=== PATIENT | female | born 1950 | race Caucasian/White ===

== ENCOUNTER → 2016-07-01 | Outpatient (CLI) | payer OTHER ==
--- NOTE | 2016-07-01 17:10 | DX ---
DEXA Bone Mineral Densitometry Clinical Indications: Postmenopausal, history of wrist surgery, screening for osteoporosis Comparison: May 02, 2014 (low bone density) Technique: Bone Mineral Densitometry (BMD) by [employer] X-Ray Absorptiometry (DEXA) was performed utilizing the [employer] scanner. The lumbar spine was evaluated in the AP projection. The bilat eral hips and forearm were evaluated in the AP projection. Vertebral fracture assessment was also pe rformed. AP Lumbar Spine: The L1, L2, L3 and L4 vertebral bodies were evaluated. BMD: 1.238 gm/cm2 T-score: 0.4 SD Z-score: 2.1 SD No significant change AP Left Hip: Neck BMD: 0.867 gm/cm2 T-score: -1.2 SD Z-score: 0.4 SD No significant change in total BMD AP Right Hip: Neck BMD: 0.818 gm/cm2 T-score: -1.6 SD Z-score: 0 SD No significant change in total BMD AP Left Forearm, 05/28: BMD: 0.873 gm/cm2 T-score: 0 SD Z-score: 1.2 SD No significant change Vertebral Fracture Assessment: No significant fracture deformity. No prevertebral aortic calcificati on, significant marginal bone spurring, facet arthrosis, or intrinsic vertebral body sclerosis that would effect the accuracy of the lumbar spine BMD measurement. Conclusion: Considering the lowest measured site, the patient has low bone density. The ten year FRAX risk for any major osteoporotic fracture is 15% and for a hip fracture is 1.7%. Any bone loss in this patient is probably related to aging or estrogen deficiency. To prevent osteoporosis and to promote the patient's bone density, the following recommendations shou ld be considered: 1. Pursue a regular regimen of weightbearing and muscle strengthening exercises in order to reduce t he risk of falls and fractures (as tolerated by the patient's general medical condition). 2. Ensure that daily dietary calcium uptake is maximized. 3. Consider checking the serum vitamin D level. Ensure that intake of vitamin D is 600 IU per day (fo r all ages through 70) . 4. Consider follow-up DEXA scan in two years to assess the rate of bone loss in this patient.
== END ==
LOC: FIMAGING 13:22
PROVIDERS: ATTEND Obstetrics & Gynecology
DX: Z13.820 Encounter for screening for osteoporosis (principal); M85.80 Other specified disorders of bone density and structure, unspecified site

== ENCOUNTER → 2017-03-27 | Outpatient (CLI) | payer OTHER | LOC: FIMAGING 09:15 | PROVIDERS: ATTEND Obstetrics & Gynecology | DX: Z12.31 Encounter for screening mammogram for malignant neoplasm of breast (principal) | CPT/HCPCS: G0202 ==

== ENCOUNTER 2017-07-06 20:59 | Observation (INO) | payer OTHER ==
[2017-07-06] MEDS ORDERED: NS 1,000 ML IV ONE (21:31)
--- NOTE | 2017-07-06 21:32 | EDPHY ---
H & P Smoking Status: Never smoked Time Seen by Provider: 07/06/17 21:22 HPI/ROS: HPI Fall on stairs. 66-year-old female by private vehicle with her . The patient reported she had a couple of glasses of wine after dinner. She reports that she had a headache. She reports she was walking up her stairs carrying a computer and either tripped on the power cord of the computer she was caring or fainted. She fell forward and likely struck the right side of her face on the edge of the stairs. Her who was in another room heard a loud crash when she fell. He then found her on the stairs. He thinks she lost consciousness for five minutes possibly up to 10 minutes before regaining consciousness. Currently, she complains of a headache which she describes as frontal in nature and right-sided facial pain and swelling. She also complains of a laceration to her right medial elbow and some bruising to her right hand. No neck pain. Denies other extremity pain. No loss of sensation or weakness in her extremities. She is not on Coumadin. She takes aspirin daily. No other antiplatelet or anticoagulant agents. ROS: Constitutional: No fever, no chills. No weakness. Eyes: No discharge. No changes in vision. ENT: No sore throat. No nasal congestion or rhinorrhea. Respiratory: No cough. No shortness of breath. Cardiac: No chest pain, no palpitations. Gastrointestinal: No abdominal pain, no vomiting, no diarrhea. Genitourinary: No hematuria. No dysuria or increased frequency with urination. Musculoskeletal: No back pain. No neck pain. No extremity pain. Complains of right-sided facial pain. Skin: No rashes. Neurological: Right frontal headache. No focal weakness or altered sensation. Past medical history: Hypothyroidism, hyperlipidemia, prediabetic, chronic kidney disease, hypertension, 3 knee surgeries, hand surgery, x2. Social history: Nonsmoker. Admits to two or three glasses of wine tonight. Here with her . Physical Exam: General Appearance: Alert, no distress. This patient is responding to questions appropriately and in full sentences. This patient appears well- hydrated and well-nourished. Head: Normocephalic atraumatic except for a large periorbital hematoma and maxilla hematoma on the right side which has her right eye swollen shut. I was able to retract her eyelids. Grossly her right pupil and cornea appear normal. Face: Facial bones are stable on palpation. Eyes: Pupils equal and round and reactive to light, no pallor or injection. No lid erythema or edema. ENT, Mouth: Mucous membranes moist. Dentition is intact. No malocclusion of the jaw. No tongue lacerations or abrasions. Pharynx is clear. The bilateral nasal canals are clear. No septal hematoma. She does have a midline upper lip laceration involving the midline upper lip mucosa which measures approximately 1.5 cm. She has a 0.5 cm laceration midline upper lip but not involving the vermilion border. Respiratory: There are no retractions, lungs are clear to auscultation with good air movement bilaterally. Chest wall is stable to AP and lateral palpation. Cardiovascular: Regular rate and rhythm. No murmur. Gastrointestinal: Abdomen is soft and nontender, no masses, bowel sounds normal. Neurological: Motor sensory function is intact. Cranial nerves are normal. Cerebellar function intact. Skin: Warm and dry, no rashes. 3 cm elliptical laceration distal right arm medial aspect just proximal to the medial condyle. Contusion dorsal aspect right hand fourth and fifth metacarpal's. Musculoskeletal: Neck is supple and nontender. The trachea is midline. No midline cervical, thoracic, lumbar or sacral tenderness on palpation. No flank tenderness on palpation. Extremities are symmetrical, full range of motion. All joints in the bilateral upper and bilateral lower extremities range without pain or impingement. No tenderness on palpation of the long bones in the bilateral upper and bilateral lower extremities. Psychiatric: No agitation. No depression. Database: EKG: Imaging: Right hand x-ray series: Negative for fracture, subluxation, dislocation. Interpreted by me. Right elbow x-ray series: Negative for fracture, subluxation, dislocation, radiopaque foreign body. Interpreted by me. Chest x-ray AP portable: No bony abnormality noted. No pneumothorax. No acute cardiopulmonary disease process. Interpreted by me. CT scan of head without contrast: Significant for a left-sided frontal and parietal subarachnoid hemorrhage. No shift. There is no evidence of skull fracture or facial fracture. Extensive soft tissue swelling involving the right periorbital and maxilla soft tissues. Results were discussed with staff radiologist Dr. Telly Chacko. CT scan of cervical line without contrast: Negative for fracture, subluxation, dislocation. Results were discussed with staff radiologist Dr. Telly Chacko. Procedures: Please see procedure note by physician lead assistant manager Ju Garza for facial laceration repair and right elbow laceration repair. Emergency department course: IV placed. Vital signs reviewed. She is moderately hypertensive. Vital signs otherwise normal. After my initial trauma assessment she was sent for CT imaging of the head. Upon return and recognition of a serum alcohol of 343 she was placed in a cervical collar. A CT scan of her cervical spine was ordered. She will remain in her cervical collar until further evaluation by the trauma service. 11:00 p.m., spoke with on-call he neurosurgeon Dr. Lenny Broderick. Case discussed in detail with him. He are one of his partners will see this patient on consultation. We will plan on admitting the patient primarily to the trauma service. 11:15 p.m., spoke with on-call trauma surgeon Dr. Yunier Bee. Case discussed in detail with him. He Accepts this patient for admission and will see the patient in the emergency department shortly. I relayed my conversation with Dr. Broderick to Dr. Bee. The patient will be given 1 g of IV Keppra in the emergency department for seizure prophylaxis. She will also be given 60 mg of nimodipine orally secondary to the possibility of nontraumatic subarachnoid hemorrhage and vasospasm. 11:35 p.m., Dr. Bee is at the bedside. The patient's remaining emergency department course under my care has been uneventful. She was admitted under the care of the trauma service in stable condition. Differential Diagnosis: The differential diagnosis on this patient includes but is not limited to subarachnoid hemorrhage, facial contusion, alcohol intoxication. Cervical spine injury unlikely. This represents a partial list of diagnoses considered. These considerations are based on history, physical exam, past history, reassessment and diagnostic testing. (Jay Gates) Constitutional: Initial Vital Signs Temperature (C) 36.3 C 07/06/17 21:02 Heart Rate 85 07/06/17 21:02 Respiratory Rate 18 07/06/17 21:02 Blood Pressure 149/97 H 07/06/17 21:02 O2 Sat (%) 94 07/06/17 21:02 O2 Delivery Mode Room Air Allergies/Adverse Reactions: allopurinol Allergy (Severe, Verified 07/06/17 21:01) Rash Home Medications: Medication Instructions Recorded Atenolol [Tenormin 25 mg (*)] 12.5 mg PO DAILY 08/27/11 Fluticasone/Salmeter 100/50Mcg 1 inh IH DAILY 08/27/11 [Advair 100/50 (*)] [place]-3 Ethyl Est-Lovaza [Lovaza 1 1 gm PO DAILY 08/27/11 gm (*)] metFORMIN SR [Glucophage XR 500 mg 1,000 mg PO DAILY 08/27/11 (*)] Aspirin [Aspirin 81mg (*)] 81 mg PO Q2D 01/25/14 Atorvastatin Calcium [Lipitor 40 40 mg PO DAILY 01/25/14 mg (*)] Lisinopril [Zestril 5 mg (*)] 5 mg PO HS 01/25/14 Albuterol [Proventil Inhaler HFA 1 - 2 puffs IH DAILY PRN 07/07/17 (*)] Herbals/Supplements -Info Only 1 ea PO DAILY 07/07/17 Levothyroxine [Synthroid 50 mcg 50 mcg PO DAILY 07/07/17 (*)] Medical Decision Making - Diagnostics Imaging Results: Imaging Impressions Cervical Spine CT 07/06/17 22:41 Impression: No evidence for acute fracture cervical spine. Multilevel degenerative disk and degenerative joint disease cervical spine most pronounced at C4-C5 and C5-C6. Results called and discussed with Jay Gates MD at 07/06/2017 23:31. Procedures: I was asked by Dr. Jay Gates to repair lacerations. Laceration repair #1. Verbal consent was obtained from the patient. The 4 cm flap laceration on the right elbow was anesthetized using 1% lidocaine with epinephrine. The wound was irrigated with saline, draped and explored to its base with a gloved finger. There were no deep structures involved. No tendon injury was identified. The wound was repaired with 4 0 Ethilon, 7 sutures. The wound repair was complex. The procedure was performed by myself. Laceration repair #2. Verbal consent was obtained from the patient. The 2 cm laceration on the upper lip was anesthetized using 1% lidocaine with epinephrine. The wound was irrigated with saline, draped and explored to its base with a gloved finger. There were no deep structures involved. The wound was repaired with 6 0 Vicryl , 3 sutures. The wound repair was simple. The procedure was performed by myself. (Ju Torres) - Data Points Laboratory Results: Laboratory Results 07/06/17 21:00 07/06/17 21:00 07/06/17 07/06/17 21:00 21:00 Hemoglobin A1c 5.9 % % (4.0-6.0) Estim Average Glucose 123 mg/dL mg/dL (68-126) TSH 7.200 uIU/mL H uIU/mL (0.465-4.680) Medications Given: Acetaminophen (Tylenol) 1,000 mg PO Q8H PALLAVI Stop: 01/02/18 23:14 Last Admin: 07/07/17 08:26 Dose: Not Given Atenolol (Tenormin) 12.5 mg PO DAILY PALLAVI Stop: 01/03/18 08:59 Last Admin: 07/07/17 08:27 Dose: Not Given Atorvastatin Calcium (Lipitor) 40 mg PO DAILY PALLAVI Stop: 01/03/18 08:59 Last Admin: 07/07/17 08:25 Dose: 40 mg Lactated Ringer's (Lr) 1,000 mls @ 100 mls/hr IV CONT PALLAVI Stop: 01/02/18 23:29 Last Admin: 07/07/17 03:08 Dose: 1,000 mls Levothyroxine Sodium (Synthroid) 50 mcg PO DAILY06 PALLAVI Stop: 01/03/18 05:59 Last Admin: 07/07/17 06:51 Dose: 50 mcg Lisinopril (Zestril) 5 mg PO DAILY PALLAVI Stop: 01/03/18 08:59 Last Admin: 07/07/17 08:27 Dose: Not Given Metformin HCl (Glucophage Xr) 1,000 mg PO DAILY PALLAVI Stop: 01/03/18 08:59 Last Admin: 07/07/17 08:25 Dose: 1,000 mg Multivitamins (Tab-A-Jay) 1 each PO DAILY PALLAVI Stop: 01/03/18 08:59 Last Admin: 07/07/17 08:25 Dose: 1 each Oetdc-4-Xcly Ethyl Esters (Lovaza) 1 gm PO DAILY PALLAVI Stop: 01/03/18 08:59 Last Admin: 07/07/17 09:54 Dose: Not Given Discontinued Medications Sodium Chloride (Ns) 1,000 mls @ 0 mls/hr IV ONCE ONE; Wide Open PRN Reason: Protocol Stop: 07/06/17 21:32 Last Admin: 07/06/17 21:40 Dose: 1,000 mls Levetiracetam (Keppra (Premix)) 100 mls @ 400 mls/hr IV EDNOW ONE Stop: 07/06/17 23:50 Last Admin: 07/07/17 00:19 Dose: 100 mls Sodium Chloride (Ns) 500 mls @ 0 mls/hr IV ONCE ONE PRN Reason: Wide Open Stop: 07/07/17 06:01 Last Admin: 07/07/17 05:49 Dose: 500 mls Ketorolac Tromethamine (Toradol) 30 mg IVP Q6 PALLAVI Stop: 07/12/17 00:00 Last Admin: 07/07/17 02:59 Dose: Not Given Nimodipine (Nimotop) 60 mg PO Q4HRS PALLAVI Stop: 01/03/18 01:59 Last Admin: 07/07/17 10:22 Dose: Not Given Fluticasone/Salmeterol (Advair) 1 puffs IH DAILY PALLAVI Stop: 01/03/18 08:59 Last Admin: 07/07/17 08:13 Dose: Not Given Tetracaine/Epinephrine/Lidocaine (Let Gel Topical) 1 ea TP EDNOW ONE Stop: 07/06/17 22:25 Last Admin: 07/06/17 22:25 Dose: 1 ea Departure - Departure Disposition: [facility] Acute Clinical Impression: Subarachnoid hemorrhage, Alcohol intoxication, Facial contusion Condition: Fair
[2017-07-06 21:37] LABS: PLATELET COUNT 283 10^3/uL (150-400)
[2017-07-06 21:46] LABS: INR 0.87 (0.83-1.16); PROTIME(PATIENT) 12.1 SEC (12.0-15.0)
[2017-07-06] MEDS ORDERED: LET GEL TOPICAL 1 EA SYR TP ONE ×2 (22:23→22:24)
[2017-07-06] MEDS ORDERED: ONDANSETRON 4 MG/2 ML VIAL IVP PRN (23:02)
[2017-07-06] MEDS: ACETAMINOPHEN 500 MG TAB PO SCH (23:21)
[2017-07-06] MEDS ORDERED: LR 1,000 ML IV SCH (23:30)
[2017-07-06] MEDS ORDERED: levETIRAcetam 1000MG/NACL 100 ML IV ONE (23:36)
[2017-07-07] MEDS ORDERED: KETOROLAC 30 MG/1 ML SDV IVP SCH
--- NOTE | 2017-07-07 00:51 | GHP ---
[f rep st] PREOP HISTORY AND PHYSICAL DATE OF ADMISSION: 07/06/2017 ADMISSION DIAGNOSES: 1. Left [id number]-vvprqevn subarachnoid hemorrhage. 2. Left maxillary sinusitis. 3. Right face contusion. 4. Laceration upper lip. 5. Laceration right elbow. 6. Contusion right hand. 7. Alcohol intoxication. HISTORY: The patient is a 66-year-old white female, who was carrying her computer up the stairs. Apparently, the power cord was dangling and she tripped. Her heard a crash and found her lying on the tile floor at the base of the stairs. He felt she had a 2 minute loss of consciousness and it was 4-5 minutes before she was talking to him. She has had no prior concussions. She was brought by EMS to the ED where she was seen by Dr. Jay Gates. She had a CT of her head, which showed the above- mentioned subarachnoid bleeds, but did not show any signs of facial fractures. The cervical spine was negative. I was asked to come see her for evaluation and admission. Apparently, her airway was clear on admission, she was not obviously bleeding, and her breathing was uncompromised. SOCIAL HISTORY: She does not smoke. She admits to a couple glasses of wine 3 times a week. ALLERGY: Allopurinol. (DRESS syndrome) MEDICATIONS: Include atenolol 12.5 mg daily and lisinopril 5 mg daily for hypertension of 20 years duration. She takes an 81 mg aspirin. She takes Lipitor 40 mg a day. She has had asthma for some time, but has not had need of a rescue inhaler for over a year. She uses an Advair 100/50 daily. She has been hypothyroid (Lamberto's thyroiditis) for approximately 20 years. She previously was on Synthroid 75 mg daily, and this drove her TSH into the 0.9 range. She has cut it back to half a tablet but then increased to 50 a day. Currently, her TSH is 7.5. It is unclear how diligent she has been in terms of taking her medication. She was a diabetic during both of her pregnancies, and she currently takes metformin SR 1000 mg daily. Her hemoglobin A1c has always been less than 6. PAST SURGICAL HISTORY: Include a left knee meniscectomy, a right knee ACL, and the right knee hardware removal. She had hand surgery twice in the right hand, 1 for bone spurs in her finger and for tendon release in her wrist. She has had 2 C sections. There is no history of rheumatic fever or tuberculosis. She had hepatitis, which she believes she got from water at her grandparent's house , as a young girl. She has not had a transfusion. REVIEW OF SYSTEMS: As mentioned, she has had hypertension for 20 years, thyroid problems for greater than 20 years, the borderline diabetes for many years. She has an atrophic kidney. Her renal function dramatically diminished at one point, but has returned to essentially normal at this time. She is nearsighted, wears glasses. She recently had an upper respiratory tract infection. She has dental crowns. There are no limitations in her activity. Note is made, she says she has been under a great deal of stress. She does not recall drinking enough alcohol to get to a 343 level, but nonetheless, we did talk about alcohol use and overuse. PHYSICAL EXAMINATION: GENERAL: She is awake, alert and very pleasant. HEENT: Her skull is normocephalic. There is no Diamond sign. There is an extensive hematoma involving the right upper and lower eyelids and right cheek. I cannot open to see the right eye. Her left eye appears to be moving normally. She has normal dental occlusion. She has a laceration of her upper lip, which is to be repaired. NEUROLOGIC: She is oriented x3. Edison Coma Scale is 15. I could not identify any focal lateralizing findings. She is able to do serial sevens. A C-collar is in place. The C-spine was negative, but since she is intoxicated, the C-collar will remain in place until she is technically sober. EXTREMITIES: Her left upper extremity is unremarkable. Her right upper extremity has a laceration at the elbow and extensive bruise over the hand. X- ray report is negative. BACK: Unremarkable. LUNGS: Clear to auscultation. CHEST: Stable to AP and lateral compression. CARDIAC: Shows S1, S2 to be normal. ABDOMEN: Soft and nontender. PELVIS: Stable to AP and lateral compression. EXTREMITIES: Lower extremities are unremarkable. Dr. Amezquita is aware of this patient. She will be admitted to the step-down unit. Will follow closely. I will use a narcotic if I need to, but will avoid Toradol because of her kidney dysfunction. Note is made, she was on an 81 mg aspirin, has been on that, which may have contributed to her subarachnoid bleed. Followup CAT scan will be obtained in the morning or sooner if she shows any signs of neurologic deterioration. /[id number]/MODL MTDD
[2017-07-07] MEDS: niMODipine 30 MG CAP PO SCH ×3 (03:17→10:22)
[2017-07-07] MEDS ORDERED: LEVOTHYROXINE 50 MCG TAB PO SCH (06:00)
[2017-07-07] MEDS ORDERED: LEVOTHYROXINE 75 MCG TAB PO SCH (06:00)
[2017-07-07] MEDS ORDERED: NS 500 ML IV ONE (06:00)
[2017-07-07 06:23] LABS: PLATELET COUNT 197 10^3/uL (150-400)
--- NOTE | 2017-07-07 08:12 | GCON ---
[f rep st] CONSULTATION CONSULTATION HISTORY AND PHYSICAL. DATE OF CONSULTATION: 07/07/2017 The patient seen in the intensive care unit by Dr. Carr and myself at 7:00 a.m. on 07/07/2017. CHIEF COMPLAINT: Fall down 6 steps with LOC and intracranial bleed. HISTORY OF PRESENT ILLNESS: The patient is a 66-year-old female who was carrying a computer up some stairs. Apparently the power cord was dangling and she tripped over the cord. Her heard a c rash and found her lying on the tile floor at the base of the stairs, which was approximately 6 steps in length. He felt that there was approximately 2 minute loss of consciousness and it was approxima tely 4 to 5 minutes before she was able to talk to him again. She was brought into the emergency dep artment via EMS. She was seen by Dr. Gates. She had a CT scan of the head, which showed a sub arachnoid hemorrhage. There were no signs of facial fractures. The cervical spine was negative base d on CT scan. The patient was admitted to the trauma services and we were consulted due to the small traumatic subarachnoid hemorrhage. He did his exam and they are following her as well. She denies any upper extremity complaints such as numbness, tingling, weakness or pain. No lower extremity comp laints of numbness, tingling, weakness, or pain. No neck pain. No chest pain or shortness of breath . No abdominal complaints. No fevers or chills. PAST MEDICAL HISTORY: Significant for the followin. Hypothyroidism. 2. Hyperlipidemia. 3. Prediabetic. 4. Chronic kidney disease. 5. Hypertension. PAST SURGICAL HISTORY: 1. Three knee surgeries. 2. Hand surgery. 3. x2. MEDICATIONS: Please see med rec form. ALLERGIES: Allopurinol. SOCIAL HISTORY: The patient does not smoke. She admits to a couple glasses of wine 3 times per week . IMMUNIZATIONS: Up-to-date. TRAVEL: No recent travel. FAMILY HISTORY: Noncontributory and reviewed. REVIEW OF SYSTEMS: Complete 10-point review of systems was performed and negative, otherwise noted i n HPI. PHYSICAL EXAMINATION: GENERAL: This is an awake, alert, oriented female in no acute distress. MOST RECENT VITAL SIGNS: Blood pressure 105/67 with a MAP of 76, 66 heart rate, 17 respiratory rate, 97% on 2 L, temperature 36.3. HEENT: Head is normocephalic. There is a large size periorbital hematom a on the right side with ecchymosis noted. Pupils are equal, round, reactive to light. EOMs intact. Full visual mtz by confrontation. Ears are patent. Nose is patent. NECK: Soft and supple, mi dline tenderness. Cervical collar cleared by Dr. Carr. Full range of motion with flexion, extensi on, lateral bending, rotation. No pain with active or passive range of motion. The patient clinical ly cleared from the collar by Dr. Carr. RESPIRATORY/CARDIAC: Deferred. ABDOMEN: Soft, nontender , no peritoneal signs. /RECTAL: Deferred. NEURO: The patient is awake, alert, oriented to name, place, location, date, time, and situation. Memory is intact to immediate, past, and current events . Speech: No aphasia, dysarthria, dysphonia. Cranial nerves 2-12 grossly intact. Motor: Patient has 5/5 strength in all muscle groups of bilateral upper and lower extremities to include deltoids, b iceps, triceps, brachioradialis, wrist flexion extensors, ceramics instructor intrinsic fingers, iliopsoas, quadrice ps, hamstring, plantar flexion, dorsiflexion, EHL testing. Sensation grossly intact to light touch t hroughout all dermatome distributions upper and lower extremities. Negative straight leg raise. Neg ative GOLDIE test. Reflexes of biceps, triceps, brachioradialis, knee jerk and ankle jerk 2+ out of 4 . Toes are downgoing bilaterally. Khalil's negative. Babinski negative. Negative clonus. MEDICAL DECISION MAKING/DIAGNOSTIC STUDIES: Laboratory tests obtained 07/07/2017 show a white count of 5.40 with an H and H 12.2 and 36.8 with a platelet count of 197. Coags on 07/06/2017 showed a PT of 12.1, INR 0.87, and PTT of 26.9. Chemistries on 07/07/2017 showed a sodium of 147, potassium 4.4, chloride 112, CO2 22, BUN 10, creatinine of 0.7, and glucose of 82. Alcohol level on 07/06/2017 at 2100 was an alcohol level of 343. CT scan of the head obtained 07/06/2017 showed subarachnoid hemorrhage in the cerebral sulci in the l eft frontal parietal and temporal lobes. No evidence of skull fractures. Extensive soft tissue swel ling of the right facial bones without evidence of fracture. There is noted left-sided sinusitis. CT of the cervical spine obtained showed no evidence of acute fracture in the cervical spine. There is degenerative disk and degenerative joint disease noted at C4-5 and C5-6. X-rays of the hand, elbow, and a chest x-ray defer to Trauma Services for evaluation and management o f other issues. IMPRESSION: 1. Alcohol intoxication with fall and loss of consciousness. 2. Traumatic subarachnoid hemorrhage. 3. Right-sided facial swelling. 4. Elbow and hand pain, defer to Trauma Services for management. PLAN/DISCUSSION: The patient is a 66-year-old female who was admitted to the trauma services for a f all that she that occurred last night. She fell approximately 6 steps with positive loss of consciou sness and a CT scan showed traumatic subarachnoid hemorrhage as noted above. The patient was clinica lly cleared from cervical collar this a.m. by Dr. Carr. She has no midline tenderness in her neck. She has full range of motion in flexion, extension, lateral bending, rotation with active and passi ve range of motion. Neurologically she was intact pre and post removal. We will have her work with PT, OT and speech therapy today. No further CT scans are needed at this time. We will likely plan f or discharge later today if she passes with ancillary services. All questions and concerns were answ ered. The patient understands and agrees. /[id number]/MODL
[2017-07-07] MEDS: ACETAMINOPHEN 500 MG TAB PO SCH (08:26)
[2017-07-07] MEDS ORDERED: MULTIVITAMINS 1 EACH TAB PO SCH (09:00)
[2017-07-07] MEDS ORDERED: metFORMIN SR 500 MG TAB PO SCH (09:00)
[2017-07-07] MEDS ORDERED: OMEGA-3 ETHYL EST-LOVAZA 1 GM CAP PO SCH (09:00)
[2017-07-07] MEDS ORDERED: LISINOPRIL 5 MG TAB PO SCH (09:00)
[2017-07-07] MEDS ORDERED: ATORVASTATIN CALCIUM 40 MG TAB PO SCH (09:00)
[2017-07-07] MEDS ORDERED: ATENOLOL 25 MG TAB PO SCH (09:00)
[2017-07-07] MEDS ORDERED: FLUTICASONE/SALMETER 100/50MCG DISKUS IH SCH (09:00)
--- NOTE | 2017-07-07 09:33 | ASMTCMCOM ---
CM Note CM Note Notes: 66 year old female fell down 6 stairs at home and was admitted for SAH, elbow and hand, Facial trauma, ETOH. She has a hx of HTN, Hypothyroid, HDL, pre DM, CKD. Patient lives at home with her . Therapies to eval for discharge needs. CM to follow. Date Signed: 07/07/2017 09:32 AM Electronically Signed By:Nadja Reddy LCSW
--- NOTE | 2017-07-07 11:24 | TRAUMAPN ---
Assessment/Plan: PAD#1 Tertiary Exam without new findings Assessment: Awake and alert, neurologically intact. no new findings. Visual acuity good. facial swelling decreased Plan: Discharge later today if cleared by ancillary services Subjective: I still ache all over Objective: Vital Signs Temp Pulse Resp BP Pulse Ox 36.3 C 66 17 105/67 97 07/07/17 07:33 07/07/17 07:33 07/07/17 07:33 07/07/17 07:33 07/07/17 07:33 Laboratory Results 07/07/17 06:12 07/07/17 06:12 07/06/17 07/07/17 07/08/17 05:59 05:59 05:59 Intake Total 1430 Balance 1430 PT 12.1 SEC (12.0-15.0) 07/06/17 21:00 INR 0.87 (0.83-1.16) 07/06/17 21:00 - C-Spine Clearance Cervical Spine Cleared: Yes Provider who Cleared Cervical Spine: Bruno Time Cervical Spine was Cleared: 08:00 Physical Exam - Physical Exam General Appearance: WD/WN, alert, mild distress EENT: PERRL/EOMI, other (Right facial swelling decreasing, visual acuity at baseline per patient) Neck: non-tender, full range of motion, supple Respiratory: chest non-tender, lungs clear, normal breath sounds Cardiac/Chest: regular rate, rhythm Abdomen: normal bowel sounds, non-tender, soft Pelvic Exam: deferred Rectal: deferred Back: Normal inspection Skin: normal color, other (right facial ecchymosis/swelling decreased) Extremities: normal range of motion, other (tender at right elbow at laceration) Neuro/Psych: no motor/sensory deficits, alert, normal mood/affect, oriented x 3 Time Spent w/Patient (minutes): 25
[2017-07-07 11:49] VITALS: BP 128/72; PULSE 8; RESP 21; TEMP 98.6; O2SAT 92
--- NOTE | 2017-07-07 13:53 | GDS ---
[f rep st] DISCHARGE SUMMARY DISCHARGE DIAGNOSES: 1. Fall. 2. Alcohol intoxication. 3. Facial contusion. 4. Subarachnoid hemorrhage. 5. Hypothyroidism. 6. Borderline diabetic. CONDITION ON DISCHARGE: Improved. DISPOSITION: Home. DIET: Unrestricted, though I have suggested that she avoid constipating foods such as bananas, rice, applesauce, and cheese. MEDICATIONS AT DISCHARGE: Include Tylenol 1000 mg every 8 hours, atenolol 12.5 mg daily, Lipitor 40 mg daily, levothyroxine 50 mcg daily, Zestril 5 mg q.h.s., metformin 1000 mg daily. She is to continue her multivitamins. She will take her Lovaza 1 g daily. She will use her albuterol inhaler 1-2 puffs daily as needed. She will resume her 81 mg aspirin. She will use her Advair 100/50 disk at 1 inhalation a day. She may continue her herbal medications. DISCHARGE INSTRUCTIONS: For 4 weeks, she is to avoid activities where head injury could be a possibility. She is to avoid high stimulation environment. She is to avoid sitting more than an hour at a time. Suture removal from right elbow should be in approximately 10 days. She may shower, but she is to be careful not to fall. She is to return to the ER if she has increasing headaches. She is to watch for signs of postconcussive syndrome (information dispensed). She is to strongly consider moderation in alcohol consumption. In other words, limit her daily intake to 1 drink at night and do not drink every night. FOLLOWUP: 1. She is to follow up with her family doctor regarding her thyroid function and diabetes. 2. She is to follow up with Dr. Palmer Carr in 2 weeks from Neurosurgery. 3. She is to follow up Dr. Liban Cote's office or her family doctor in 10 days for suture removal. 4. She is to follow up with her family doctor in 2 weeks for re-evaluation of her thyroid medications and glucose management. /[id number]/MODL MTDD
[2017-07-07] MEDS ORDERED: niMODipine 30 MG CAP PO ONE (23:36)
== END 2017-07-07 15:00 | disposition home or self-care (01) ==
LOC: EDUNIT# → F2N 07-07 00:28
PROVIDERS: ADMIT Surgery; ATTEND Surgery
PROC: 0CQ0XZZ Repair Upper Lip, External Approach (ICD-10-PCS; principal; 2017-07-06)
PROC: 0HQBXZZ Repair Right Upper Arm Skin, External Approach (ICD-10-PCS; principal; 2017-07-06)
DX: S06.2X1A Diffuse traumatic brain injury with loss of consciousness of 30 minutes or less, initial encounter (principal); S51.011A Laceration without foreign body of right elbow, initial encounter; S01.511A Laceration without foreign body of lip, initial encounter; S60.221A Contusion of right hand, initial encounter; W10.8XXA Fall (on) (from) other stairs and steps, initial encounter; Y92.018 Other place in single-family (private) house as the place of occurrence of the external cause; E03.9 Hypothyroidism, unspecified; R73.03 Prediabetes; F10.129 Alcohol abuse with intoxication, unspecified; J01.00 Acute maxillary sinusitis, unspecified; M50.321 Other cervical disc degeneration at C4-C5 level; M50.322 Other cervical disc degeneration at C5-C6 level
CPT/HCPCS: 12002; 12011; 70450; 71045; 72125; 73080; 73130; 92523; 92610; 97161; 97165; G0378; G0480; J1953

== ENCOUNTER → 2017-08-05 | Outpatient (CLI) | payer OTHER | LOC: FIMAGING 09:11 | PROVIDERS: ATTEND Otolaryngology | DX: J32.0 Chronic maxillary sinusitis (principal); J32.2 Chronic ethmoidal sinusitis; J32.1 Chronic frontal sinusitis; J34.2 Deviated nasal septum; L98.9 Disorder of the skin and subcutaneous tissue, unspecified ==

== ENCOUNTER → 2018-04-07 | Outpatient (CLI) | payer OTHER | LOC: FIMAGING 10:12 | PROVIDERS: ATTEND Obstetrics & Gynecology | DX: Z12.31 Encounter for screening mammogram for malignant neoplasm of breast (principal) ==